=== PATIENT | male | born 1965 | race Caucasian/White ===

== ENCOUNTER 2021-11-21 08:13 | Emergency (ER) | payer BC, OTHER ==
[2021-11-21] MEDS ORDERED: Sodium Chloride 0.9% 10 ML Syringe FLUSH PRN ×3 (08:22→10:36)
--- NOTE | 2021-11-21 08:31 | EDM.PDOC ---
ED HPI GENERAL MEDICAL PROBLEM - General Chief Complaint: Neuro Symptoms/Deficits Stated Complaint: [facility] Time Seen by Provider: 11/21/21 08:22 Source of Information: Reports: EMS, Family History Limitations: Reports: Other (patient cannot talk) - History of Present Illness INITIAL COMMENTS - FREE TEXT/NARRATIVE: The patient presents by [facility] for a stroke. His last time known well was 10pm last night when he went to bed. His found him this morning unable to talk and he could not move the right side of his body. He is COVID positive. He was diagnosed about a week ago. He was put on steroids and an antibiotic. He has no medical problems. He does not smoke. Onset: Unknown/Unsure Duration: Day(s): (last time known well was 10pm last night) Improves with: Reports: None Worsens with: Reports: None Associated Symptoms: Reports: No Other Symptoms - Related Data Allergies Allergy/AdvReac Type Severity Reaction Status Date / Time No Known Allergies Allergy Verified 11/21/21 08:32 Home Meds: Home Meds Promethazine/Dextromethorphan [Promethazine-Dm 6.25-15 mg/5Ml] 10 ml PO Q6H PRN 11/21/21 [History] dexAMETHasone [Decadron] 6 mg PO DAILY 11/21/21 [History] ED ROS GENERAL - Review of Systems Review Of Systems: Unable To Obtain Reason Not Obtained: Patient cannot talk ED EXAM, NEURO - Physical Exam Exam: See Below Exam Limited By: Other (The patient cannot talk. He will try to shake his head yes or no) General Appearance: Alert, No Apparent Distress Eye Exam: Bilateral Eye: EOMI Ears: Normal External Exam Head Exam: Atraumatic, Normocephalic Neck: Normal Inspection Respiratory/Chest: No Respiratory Distress, Lungs Clear, Normal Breath Sounds Cardiovascular: Regular Rate, Rhythm, No Edema, No Murmur GI/Abdominal: Soft, Non-Tender, No Organomegaly, No Mass Neurological: Alert, Other (The patient cannot talk. He has right facial droop and he cannot move his right arm or leg) Back Exam: Normal Inspection Extremities: Normal Inspection #1 Interpretation EKG Date: 11/21/21 Time: 09:09 Rhythm: Other (sinus tachycardia) Rate (Beats/Min): 115 Terral: LAD-Left Terral Deviation P-Wave: Present QRS: Normal ST-T: Normal QT: Normal Course - Vital Signs Last Recorded V/S: Last Vital Signs Temp 98.4 F 11/21/21 08:27 Pulse 105 H 11/21/21 08:27 Resp 18 11/21/21 08:27 BP 145/90 H 11/21/21 08:27 Pulse Ox 93 L 11/21/21 09:14 - Orders/Labs/Meds Orders: Active Orders 24 hr Category Date Time Status Cardiac Monitoring [RC] . DIRECTED Care 11/21/21 08:22 Active Peripheral IV Care [RC] . DIRECTED Care 11/21/21 08:23 Active RT Aerosol Therapy [RC] ASDIRECTED Care 11/21/21 09:14 Active Sodium Chloride 0.9% [Normal Saline] 100 ml Med 11/21/21 09:45 Active IV ASDIRECTED Sodium Chloride 0.9% [Normal Saline] 100 ml Med 11/21/21 10:45 Active IV ASDIRECTED Sodium Chloride 0.9% [Saline Flush] Med 11/21/21 08:22 Active 10 ml FLUSH ASDIRECTED PRN Sodium Chloride 0.9% [Saline Flush] Med 11/21/21 09:36 Active 10 ml FLUSH ONETIME PRN Sodium Chloride 0.9% [Saline Flush] Med 11/21/21 10:36 Active 10 ml FLUSH ONETIME PRN Peripheral IV Insertion Adult [OM.PC] Stat Oth 11/21/21 08:22 Ordered Medication Orders Sodium Chloride (Normal Saline) 100 mls @ 75 mls/hr IV ASDIRECTED MATEO Last Admin: 11/21/21 09:37 Dose: 75 mls/hr Documented by: WONG Sodium Chloride (Normal Saline) 100 mls @ 75 mls/hr IV ASDIRECTED MATEO Sodium Chloride (Sodium Chloride 0.9% 10 Ml Syringe) 10 ml FLUSH ASDIRECTED PRN PRN Reason: Keep Vein Open Last Admin: 11/21/21 08:36 Dose: 10 ml Documented by: CARMEN Sodium Chloride (Sodium Chloride 0.9% 10 Ml Syringe) 10 ml FLUSH ONETIME PRN PRN Reason: IV FLUSH Last Admin: 11/21/21 09:37 Dose: 10 ml Documented by: WONG Sodium Chloride (Sodium Chloride 0.9% 10 Ml Syringe) 10 ml FLUSH ONETIME PRN PRN Reason: IV FLUSH Labs: Laboratory Tests 11/21/21 11/21/21 11/21/21 Range/Units 08:21 08:25 08:25 WBC 7.84 (4.23-9.07) K/mm3 RBC 4.64 (4.63-6.08) M/mm3 Hgb 14.3 (13.7-17.5) gm/dl Hct 39.9 L (40.1-51.0) % MCV 86.0 (79.0-92.2) fl MCH 30.8 (25.7-32.2) pg MCHC 35.8 H (32.2-35.5) g/dl RDW Std Deviation 39.8 (35.1-43.9) fL Plt Count 221 (163-337) K/mm3 MPV 9.9 (9.4-12.3) fl Neut % (Auto) 83.0 H (34.0-67.9) % Lymph % (Auto) 7.3 L (21.8-53.1) % Ponce % (Auto) 8.7 (5.3-12.2) % Eos % (Auto) 0.3 L (0.8-7.0) Baso % (Auto) 0.1 (0.1-1.2) % Neut # (Auto) 6.51 H (1.78-5.38) K/mm3 Lymph # (Auto) 0.57 L (1.32-3.57) K/mm3 Ponce # (Auto) 0.68 (0.30-0.82) K/mm3 Eos # (Auto) 0.02 L (0.04-0.54) K/mm3 Baso # (Auto) 0.01 (0.01-0.08) K/mm3 Manual Slide Review Normal smear PT 11.2 (9.7-12.0) SECONDS INR 1.01 APTT 23.6 (21.7-31.4) SECONDS Sodium (136-145) mEq/L Potassium (3.5-5.1) mEq/L Chloride (98-107) mEq/L Carbon Dioxide (21-32) mEq/L Anion Gap (5-15) BUN (7-18) mg/dL Creatinine (0.7-1.3) mg/dL Est Cr Clr Drug Dosing Estimated GFR (MDRD) (>60) mL/min BUN/Creatinine Ratio (14-18) Glucose (70-99) mg/dL POC Glucose 118 H (70-99) mg/dL Calcium (8.5-10.1) mg/dL Total Bilirubin (0.2-1.0) mg/dL AST (15-37) U/L ALT (16-63) U/L Alkaline Phosphatase (46-116) U/L Troponin I (0.00-0.056) ng/mL Total Protein (6.4-8.2) g/dl Albumin (3.4-5.0) g/dl Globulin gm/dL Albumin/Globulin Ratio (1-2) 11/21/21 Range/Units 08:25 WBC (4.23-9.07) K/mm3 RBC (4.63-6.08) M/mm3 Hgb (13.7-17.5) gm/dl Hct (40.1-51.0) % MCV (79.0-92.2) fl MCH (25.7-32.2) pg MCHC (32.2-35.5) g/dl RDW Std Deviation (35.1-43.9) fL Plt Count (163-337) K/mm3 MPV (9.4-12.3) fl Neut % (Auto) (34.0-67.9) % Lymph % (Auto) (21.8-53.1) % [place]once % (Auto) (5.3-12.2) % Eos % (Auto) (0.8-7.0) Baso % (Auto) (0.1-1.2) % Neut # (Auto) (1.78-5.38) K/mm3 Lymph # (Auto) (1.32-3.57) K/mm3 [place]once # (Auto) (0.30-0.82) K/mm3 Eos # (Auto) (0.04-0.54) K/mm3 Baso # (Auto) (0.01-0.08) K/mm3 Manual Slide Review PT (9.7-12.0) SECONDS INR APTT (21.7-31.4) SECONDS Sodium 138 (136-145) mEq/L Potassium 3.8 (3.5-5.1) mEq/L Chloride 104 (98-107) mEq/L Carbon Dioxide 21 (21-32) mEq/L Anion Gap 16.8 H (5-15) BUN 18 (7-18) mg/dL Creatinine 0.8 (0.7-1.3) mg/dL Est Cr Clr Drug Dosing TNP Estimated GFR (MDRD) > 60 (>60) mL/min BUN/Creatinine Ratio 22.5 H (14-18) Glucose 117 H (70-99) mg/dL POC Glucose (70-99) mg/dL Calcium 8.1 L (8.5-10.1) mg/dL Total Bilirubin 0.7 (0.2-1.0) mg/dL AST 37 (15-37) U/L ALT 43 (16-63) U/L Alkaline Phosphatase 36 L (46-116) U/L Troponin I < 0.017 (0.00-0.056) ng/mL Total Protein 7.2 (6.4-8.2) g/dl Albumin 2.9 L (3.4-5.0) g/dl Globulin 4.3 gm/dL Albumin/Globulin Ratio 0.7 L (1-2) Meds: Medications Generic Name Dose Route Start Last Admin Trade Name Freq PRN Reason Stop Dose Admin Sodium Chloride 100 mls @ 75 mls/hr 11/21/21 09:45 11/21/21 09:37 Normal Saline IV 75 mls/hr ASDIRECTED MATEO Administration Sodium Chloride 100 mls @ 75 mls/hr 11/21/21 10:45 Normal Saline IV ASDIRECTED MATEO Sodium Chloride 10 ml 11/21/21 08:22 11/21/21 08:36 Sodium Chloride 0.9% 10 Ml Syringe FLUSH 10 ml ASDIRECTED PRN Administration Keep Vein Open Sodium Chloride 10 ml 11/21/21 09:36 11/21/21 09:37 Sodium Chloride 0.9% 10 Ml Syringe FLUSH 10 ml ONETIME PRN Administration IV FLUSH Sodium Chloride 10 ml 11/21/21 10:36 Sodium Chloride 0.9% 10 Ml Syringe FLUSH ONETIME PRN IV FLUSH Discontinued Medications Generic Name Dose Route Start Last Admin Trade Name Freq PRN Reason Stop Dose Admin Albuterol/Ipratropium 3 ml 11/21/21 09:14 11/21/21 09:27 Albuterol/Ipratropium 3.0-0.5 Mg/3 Ml Neb Soln NEB 11/21/21 09:15 3 ml ONETIME ONE Administration Aspirin 300 mg 11/21/21 12:23 Aspirin 300 Mg Supp RECTAL 11/21/21 12:24 ONETIME ONE Iopamidol 100 ml 11/21/21 09:36 11/21/21 09:37 Iopamidol 755 Mg/Ml 100 Ml Bottle IVPUSH 11/21/21 09:37 100 ml ONETIME ONE Administration Iopamidol 100 ml 11/21/21 10:36 Iopamidol 755 Mg/Ml 100 Ml Bottle IVPUSH 11/21/21 10:37 ONETIME ONE - Re-Assessments/Exams Free Text/Narrative Re-Assessment/Exam: 11/21/21 08:30 A stroke alert was called. His last time known well was 10pm last night. The patient went right to the CT scanner. I ordered an IV saline lock, CT of his head, EKG and labs. 11/21/21 09:46 His EKG shows a sinus tachycardia with no acute changes. His CT shows no evidence for acute intracranial hemorrhage, hydrocephalus or mass effect. Question of a small area of developing acute infarct in the parasagittal posterior left frontal lobe superiorly seen on axial series 2 images 36 through 38. MRI would be more sensitive for acute infarct if patient MRI compatible and indicated clinically. His CBC looks good. His PT and PTT look good. His anion gap was elevated at 16.8. His glucose is 118. His troponin is negative. I have ordered a CT of his head. I called both hospitals in [place] and they had no beds. [facility] had no beds. I called [facility] in [place] and there are no beds. 11/21/21 11:09 I called [facility] and talked with the neurologist crime prevention worker Dr Mcmahon and the hospitalist. They wanted more imaging of the carotid artery. I have ordered a CT angio of the had and I included the neck this time. I did also talk with the radiologist and he recommended a little lest contrast like 80mls. I let the tech know. 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 I called [facility] back and talked with the hospitalist crime prevention worker Dr Barbour and she accepted the patient. She wanted the patient to fly there. We have contacted [facility] they are the only one available in the region at this time. 11/21/21 12:52 I talked with the neurologist Dr Mcmahon and she did not want heparin but she did want aspirin rectally given. I have ordered that. 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 DIRECTED Sodium Chloride 0.9% [Saline Flush] 10 ml FLUSH ASDIRECTED PRN Peripheral IV Insertion Adult [OM.PC] Stat 11/21/21 08:23 Peripheral IV Care [RC] . DIRECTED 11/21/21 09:14 RT Aerosol Therapy [RC] ASDIRECTED 11/21/21 09:36 Sodium Chloride 0.9% [Saline Flush] 10 ml FLUSH ONETIME PRN 11/21/21 09:45 Sodium Chloride 0.9% [Normal Saline] 100 ml IV ASDIRECTED 11/21/21 10:36 Sodium Chloride 0.9% [Saline Flush] 10 ml FLUSH ONETIME PRN 11/21/21 10:45 Sodium Chloride 0.9% [Normal Saline] 100 ml IV ASDIRECTED - Assessment/Plan Last 24 Hours: My Active Orders 11/21/21 08:22 Cardiac Monitoring [RC] . DIRECTED Sodium Chloride 0.9% [Saline Flush] 10 ml FLUSH ASDIRECTED PRN Peripheral IV Insertion Adult [OM.PC] Stat 11/21/21 08:23 Peripheral IV Care [RC] . DIRECTED 11/21/21 09:14 RT Aerosol Therapy [RC] ASDIRECTED 11/21/21 09:36 Sodium Chloride 0.9% [Saline Flush] 10 ml FLUSH ONETIME PRN 11/21/21 09:45 Sodium Chloride 0.9% [Normal Saline] 100 ml IV ASDIRECTED 11/21/21 10:36 Sodium Chloride 0.9% [Saline Flush] 10 ml FLUSH ONETIME PRN 11/21/21 10:45 Sodium Chloride 0.9% [Normal Saline] 100 ml IV ASDIRECTED
[2021-11-21] MEDS ORDERED: Albuterol/Ipratropium 3.0-0.5 MG/3 ML Neb Soln NEB ONE (09:14)
--- NOTE | 2021-11-21 09:24 | CT ---
EXAM: CT HEAD W/O LOCATION: [facility] DATE/TIME: 11/21/2021 8:15 AM INDICATION: Rt sided weakness and can not talk, last known normal 10:00 PM last night. COMPARISON: None. TECHNIQUE: Routine CT Head without IV contrast. Multiplanar reformats. Dose reduction techniques were used. FINDINGS: INTRACRANIAL CONTENTS: No intracranial hemorrhage, extraaxial collection, or mass effect. There is a localized area of apparent cortical low-density change in the parasagittal posterior left frontal region perhaps best visualized on series 2 images 36, 37, and 38 which potentially could be a developing localized acute infarct. Nothing else definite for acute infarct by CT. Normal parenchymal attenuation elsewhere. Normal ventricles and sulci. VISUALIZED ORBITS/SINUSES/MASTOIDS: No intraorbital abnormality. No paranasal sinus mucosal disease. No middle ear or mastoid effusion. BONES/SOFT TISSUES: No acute abnormality. IMPRESSION: 1. No evidence for acute intracranial hemorrhage, hydrocephalus or mass effect. 2. Question of a small area of developing acute infarct in the parasagittal posterior left frontal lobe superiorly seen on axial series 2 images 36 through 38. MRI would be more sensitive for acute infarct if patient MRI compatible and indicated clinically. 3. Findings called to Dr. Garcia at 9:35 AM on 11/21/2021. SIGNED BY: Jt Mireles MD 11/21/2021 9:49 AM JOON
--- NOTE | 2021-11-21 09:25 | CR ---
EXAM: XR CHEST 1 VIEW LOCATION: [facility] [employer] DATE/TIME: 11/21/2021 8:29 AM INDICATION: Stroke alert. Active covid. Chest pain COMPARISON: 11/15/2021 IMPRESSION: Dense consolidation in the periphery of the mid and lower lungs compatible with progression of Covid 19 pneumonia since 11/14/2021. No pneumothorax. Shallow inspiration and prominent cardiac fat pads exaggerate heart size and pulmonary vascularity which appear similar. SIGNED BY: Shawn Carmen MD 11/21/2021 9:54 AM JOON
[2021-11-21] MEDS ORDERED: Iopamidol 755 Mg/ML 100 ML Bottle IVPUSH ONE ×2 (09:36→10:36)
[2021-11-21] MEDS ORDERED: Sodium Chloride 0.9% 100 ML IV SCH ×2 (09:45→10:45)
--- NOTE | 2021-11-21 11:31 | CT ---
EXAM: CT ANGIO HEAD LOCATION: DATE/TIME: 11/21/2021 8:45 AM INDICATION: Cannot speak and right sided weakness., Last known normal 10:00 PM last night. Patient with COVID infection. COMPARISON: CT head earlier this morning. CONTRAST: Isovue [id number] TECHNIQUE: Head CT angiogram with IV contrast. Noncontrast head CT followed by axial helical CT images of the intracranial vessels obtained during the arterial phase of intravenous contrast administration. Axial helical 2D reconstructed images and multiplanar 3D MIP reconstructed images of the intracranial vessels were performed by the technologist. Dose reduction techniques were used. FINDINGS: NONCONTRAST HEAD CT: INTRACRANIAL CONTENTS: Axial noncontrast head images grossly unchanged from CT earlier this morning. HEAD CTA: ANTERIOR CIRCULATION: All of the major large-caliber proximal anterior circulation vessels are patent without aneurysm or AVM identified. The density of the contrast material in the left internal carotid artery in the upper neck and skull base is less dense than in the right ICA suggesting there may be a significant stenosis or dissection in the more proximal nonvisualized left internal carotid artery below the imaging field. Additionally suggestion of some subtle stenosis in a very distal A3-A4 level branch of the left anterior cerebral artery could represent partially occlusive thrombus. Standard [place] anatomy. POSTERIOR CIRCULATION: Both intracranial vertebral arteries and the basilar artery are patent. Both posterior cerebral arteries patent. Dominant left vertebral artery is the main supply to the patent basilar artery. Right vertebral artery is of small caliber and appears to only supply the right posterior inferior cerebellar artery anatomically. DURAL VENOUS SINUSES: Expected enhancement of the major dural venous sinuses. IMPRESSION: HEAD CT: 1. Limited axial noncontrast images of the head show no definite change from CT head earlier today. HEAD CTA: 1. All of the major large-caliber proximal intracranial vessels are patent. 2. Decrease in density in the contrast material in the left internal carotid artery in the upper neck and skull base region compared to the right side suggestive of a possible significant stenosis or dissection in the more proximal nonvisualized left internal carotid artery. Follow-up imaging of the neck vessels recommended with either neck MR angiogram if patient MRI compatible or follow-up CTA if patient renal function allows. 3. Suggestion of some localized narrowing in the distal branch of the left anterior cerebral artery. Potentially this could be due to some partially occlusive thrombus or underlying stenosis. 4. Findings discussed with Dr. Garcia in the [facility] room at 10:50 AM on 11/21/2021. SIGNED BY: Jt Mireles MD 11/21/2021 11:12 AM OJON
--- NOTE | 2021-11-21 12:12 | CT ---
EXAM: CT ANGIOGRAM NECK WITH AND OR WITHOUT CONTRAST, CT ANGIOGRAM HEAD WITH AND OR WITHOUT CONTRAST LOCATION: [facility] DATE/TIME: 11/21/2021 10:45 AM INDICATION: Headache, numbness, weakness, Cva ? dissection lt carotid COMPARISON: CT head 11/21/2021 CONTRAST: isovue [id number] TECHNIQUE: Head and neck CT angiogram with IV contrast. Axial helical CT images of the head and neck vessels obtained during the arterial phase of intravenous contrast administration. Axial 2D reconstructed images and multiplanar 3D MIP reconstructed images of the head and neck vessels were performed by the technologist. Dose reduction techniques were used. All stenosis measurements made according to NASCET criteria unless otherwise specified. FINDINGS: HEAD CTA: ANTERIOR CIRCULATION: Diminished opacification of the left internal carotid artery compared to the contralateral side. Additionally, the left MCA demonstrates decreased opacification. Standard [place] anatomy. POSTERIOR CIRCULATION: The right V4 segment terminates primarily as the PICA. There is a small branch which extends in the direction of the vertebrobasilar junction but appears unopacified. The left vertebral artery is dominant and patent and contributes to the basilar artery. DURAL VENOUS SINUSES: Expected enhancement of the major dural venous sinuses. NECK CTA: RIGHT CAROTID: No measurable stenosis or dissection. LEFT CAROTID: There is occlusion of the mid and distal left common carotid artery with an apparent intraluminal filling defect which extends into the proximal left internal carotid artery (image 406, series 602). There is reconstitution of the left internal carotid artery, however, the degree of opacification is diminished compared to the contralateral side. VERTEBRAL ARTERIES: Diffusely diminutive right vertebral artery. The left vertebral artery is dominant. Both are patent. AORTIC ARCH: Common origin of the right brachiocephalic artery and the left common carotid artery. NONVASCULAR STRUCTURES: Multiple airspace opacities in the visualized bilateral lung parenchyma compatible with the previously reported history of COVID 19 pneumonia as discussed on the 11/21/2021 chest radiograph. IMPRESSION: HEAD CTA: 1. Decreased opacification of the left internal carotid artery and MCA compared to the contralateral side secondary to thrombotic occlusion within the neck, as detailed below. 2. The right V4 segment terminates primarily as the PICA. There is a small branch which extends in the direction of the vertebral basilar junction but it appears unopacified, possibly secondary to slow flow or ageindeterminate occlusion. 3. No aneurysm. NECK CTA: 1. There is occlusion of the mid and distal left common carotid artery with an intraluminal filling defect, presumably representing thrombus. This thrombus extends into the proximal left internal carotid artery. There is reconstitution of the artery distal to this, however, the degree of contrast opacification is diminished compared to the contralateral side. Findings discussed with Dr. Garcia on 11/21/2021 at 12:45 PM SIGNED BY: Curtis Jimenez MD 11/21/2021 12:48 PM JOON
[2021-11-21] MEDS ORDERED: Aspirin 300 MG Supp RECTAL ONE (12:23)
[2021-11-21] MEDS ORDERED: LORazepam 2 MG/ML SDV ONE (14:18)
[2021-11-21] MEDS ORDERED: LORazepam 2 MG/ML SDV IVPUSH ONE (14:25)
== END 2021-11-21 14:35 ==
LOC: JD.ED 08:13
DX: U07.1 COVID-19 (principal); J12.82 Pneumonia due to coronavirus disease 2019; I63.032 Cerebral infarction due to thrombosis of left carotid artery; R09.2 Respiratory arrest
CPT/HCPCS: 36415; 70450; 70496; 70498; 71045; 80053; 82947; 84484; 85025; 85610; 85730; 93005; 94640; 96374; 99285; A9270; J2060; Q9967; J7620-GY